=== PATIENT | female | born 1955 | race Caucasian/White ===

== ENCOUNTER → 2017-12-30 11:11 | Outpatient (CLI) | payer MEDICARE, OTHER, SELFPAY ==
--- NOTE | 2017-12-30 | DI.MG.S_ITS ---
BILATERAL DIGITAL SCREENING MAMMOGRAM 3D/2D WITH CAD: 12/30/2017 CLINICAL: Routine screening. Comparison is made to exams dated: 06/21/2016 mammogram, 04/21/2015 mammogram, and 04/08/2014 mammogram - [facility]. The tissue of both breasts is heterogeneously dense. This may lower the sensitivity of mammography. Current study was also evaluated with a Computer Aided Detection (CAD) system. There is a focal asymmetry in the right breast at 6 o'clock anterior depth. No other significant masses, calcifications, or other findings are seen in either breast. IMPRESSION: INCOMPLETE: NEEDS ADDITIONAL IMAGING EVALUATION The focal asymmetry in the right breast is indeterminate. Additional views with possible ultrasound are recommended. This exam was interpreted at Station ID: [id number]. NOTE: For mammograms, a report in lay terms will be sent to the patient. Approximately 15% of breast malignancies will not be visualized mammographically. In the management of a palpable breast mass, a negative mammogram must not discourage biopsy of a clinically suspicious lesion. Electronically Signed By: Maria Fernanda ye/beatriz:12/30/2017 13:20:45 copy to: HEBER ROSSI letter sent: Additional Imaging Needed ACR BI-RADS Category 0: Incomplete 3340F
== END ==
PROVIDERS: PCP Internal Medicine
DX: Z12.31 Encounter for screening mammogram for malignant neoplasm of breast (principal)
CPT/HCPCS: 77063; 77067

== ENCOUNTER → 2018-02-10 08:29 | Outpatient (CLI) | payer MEDICARE, OTHER, SELFPAY ==
--- NOTE | 2018-02-10 | DI.US.S_ITS ---
ULTRASOUND OF RIGHT BREAST: 02/10/2018 CLINICAL: Patient returns today to evaluate a density in the right breast. Comparison is made to exams dated: 02/10/2018 mammogram, 12/30/2017 mammogram - [facility], and 06/21/2016 mammogram - [facility]. Color flow ultrasound of the right breast was performed on the areas of interest. Melgar scale images of the real-time examination were reviewed. There is a cluster of microcysts in the right breast at 7 o'clock anterior depth. This correlates with mammography findings. IMPRESSION: PROBABLY BENIGN - FOLLOW-UP RECOMMENDED The cluster of microcysts in the right breast is probably benign. A follow-up ultrasound in 6 months is recommended to demonstrate stability. This exam was interpreted at Station ID: [id number]. Electronically Signed By: Maria Fernanda La M.D. lk/:02/10/2018 10:01:14 copy to: HEBER ROSSI letter sent: Followup Recommended Ultrasound BI-RADS: 3 Probably benign
--- NOTE | 2018-02-10 | DI.MG.S_ITS ---
UNILATERAL RIGHT DIGITAL DIAGNOSTIC MAMMOGRAM 3D/2D WITH ADDITIONAL VIEWS: 02/10/2018 CLINICAL: Additional evaluation requested from prior study. Comparison is made to exams dated: 12/30/2017 mammogram - [facility], 06/21/2016 mammogram, and 04/21/2015 mammogram - [facility]. The tissue of the right breast is heterogeneously dense. This may lower the sensitivity of mammography. There is an irregular mass in the right breast at 7 o'clock anterior depth. This is seen in additional views. No other significant masses or calcifications are seen in the breast. IMPRESSION: INCOMPLETE: NEEDS ADDITIONAL IMAGING EVALUATION The irregular mass in the right breast likely represents clustered cysts and is indeterminate. An ultrasound is recommended. This exam was interpreted at Station ID: [id number]. NOTE: For mammograms, a report in lay terms will be sent to the patient. Approximately 15% of breast malignancies will not be visualized mammographically. In the management of a palpable breast mass, a negative mammogram must not discourage biopsy of a clinically suspicious lesion. Electronically Signed By: Maria Fernanda [email or web address]/beatriz:02/10/2018 09:02:06 copy to: HEBER ROSSI letter sent: Additional Imaging Needed ACR BI-RADS Category 0: Incomplete 3340F
== END ==
PROVIDERS: PCP Internal Medicine
DX: R92.8 Other abnormal and inconclusive findings on diagnostic imaging of breast (principal); N63.13 Unspecified lump in the right breast, lower outer quadrant
CPT/HCPCS: 76642; 77065; G0279

== ENCOUNTER → 2018-08-11 11:57 | Outpatient (CLI) | payer MEDICARE, OTHER, SELFPAY ==
--- NOTE | 2018-08-11 | DI.US.S_ITS ---
LIMITED ULTRASOUND OF RIGHT BREAST: 08/11/2018 CLINICAL: 6 month follow-up of probable cysts. Comparison is made to exams dated: 02/10/2018 ultrasound, 02/10/2018 mammogram, 12/30/2017 mammogram - [facility], 06/21/2016 mammogram, 04/21/2015 mammogram, and 04/08/2014 mammogram - [facility]. Real-time and Doppler ultrasound of the right breast 7-8 o'clock region were performed. Melgar scale images of the real-time examination were reviewed. There is a 0.8 x 0.6 x 0.6 cm oval indistinct probable cluster of microcysts in the right breast at 7:30 position 6 cm from nipple which demonstrates posterior acoustic enhancement/increased through-transmission and no vascularity on Doppler ultrasound. This probable cluster of microcysts is unchanged in morphology from comparison exam of 02/10/2018, where it measured approximately 0.6 x 0.6 x 0.6 cm (within margins of error for measurement). IMPRESSION: PROBABLY BENIGN Stable 0.8 cm probable cluster of microcysts in the right breast at 7:30 position 6 cm from the nipple when compared with prior exam of 02/10/2018. A followup ultrasound in 6 months is recommended to demonstrate continued stability. Patient will also be due for bilateral mammography at that time. The patient is advised to monitor her breasts and to return sooner for re-evaluation should she feel anything grow or change. This exam was interpreted at Station ID: [id number]. Electronically Signed By: Rudi Carson M.D. ecl/:08/11/2018 13:21:09 letter sent: Followup Recommended Ultrasound BI-RADS: 3 Probably benign
== END ==
PROVIDERS: PCP Internal Medicine; Visit Provider Internal Medicine
DX: R92.8 Other abnormal and inconclusive findings on diagnostic imaging of breast (principal)
CPT/HCPCS: 76642

== ENCOUNTER → 2018-11-20 11:55 | Outpatient (CLI) | payer MEDICARE, OTHER, SELFPAY ==
--- NOTE | 2018-11-20 | DI.US.S_ITS ---
PROCEDURE: US ABDOMEN LIMITED INDICATIONS: VENTRAL HERNIA TECHNIQUE: Real-time focused scanning was performed of the abdomen, with image documentation. COMPARISON: None. FINDINGS: No left lower lateral ventral wall hernia or other left lower quadrant abnormality seen IMPRESSION: No left lower quadrant ventral wall hernia. Dictated by: Deo LUCERO Interpreted: Maxim Arguelles MD on 11/21/2018 at 10:00 Approved by: Maxim Arguelles M.D. on 11/21/2018 at 14:31
== END ==
PROVIDERS: PCP Physician Assistant; Visit Provider Physician Assistant
DX: K43.9 Ventral hernia without obstruction or gangrene (principal)
CPT/HCPCS: 76705

== ENCOUNTER → 2019-01-24 13:30 | Outpatient (CLI) | payer MEDICARE, OTHER, SELFPAY ==
--- NOTE | 2019-01-24 | DI.MG.S_ITS ---
BILATERAL DIGITAL DIAGNOSTIC MAMMOGRAM 3D/2D SHORT-TERM FOLLOW-UP: 01/24/2019 CLINICAL: Patient returns for 6 month follow up of right breast, due for bilateral exam. Comparison is made to exams dated: 02/10/2018 mammogram, 12/30/2017 mammogram - [facility], and 06/21/2016 mammogram - [facility]. The tissue of both breasts is heterogeneously dense. This may lower the sensitivity of mammography. There is a stable mass in the right breast at 7 o'clock anterior depth. No other significant masses, calcifications, or other findings are seen in either breast. IMPRESSION: INCOMPLETE: NEEDS ADDITIONAL IMAGING EVALUATION The stable irregular mass in the right breast is indeterminate. A targeted ultrasound of the right breast is recommended and will be performed immediately following this exam. This exam was interpreted at Station ID: [id number]. NOTE: For mammograms, a report in lay terms will be sent to the patient. Approximately 15% of breast malignancies will not be visualized mammographically. In the management of a palpable breast mass, a negative mammogram must not discourage biopsy of a clinically suspicious lesion. Electronically Signed By: Maria Fernanda ye/:01/24/2019 14:43:08 ACR BI-RADS Category 0: Incomplete 3340F
--- NOTE | 2019-01-24 | DI.US.S_ITS ---
ULTRASOUND OF RIGHT BREAST: 01/24/2019 CLINICAL: Patient returns for a 6 month follow up of the right breast. Comparison is made to exams dated: 01/24/2019 mammogram, 08/11/2018 ultrasound, 02/10/2018 ultrasound, 02/10/2018 mammogram, and 12/30/2017 mammogram - [facility]. Color flow and real-time ultrasound of the right breast were performed on the areas of interest. Melgar scale images of the real-time examination were reviewed. The clustered microcysts in the right breast at 7:30 o'clock, 6 cm from the nipple currently measures 11 x 6 x 6 mm and measured 8 x 6 x 6 mm on the comparison study dated 08/15/18. IMPRESSION: SUSPICIOUS OF MALIGNANCY The cluster of microcysts in the right breast has increased in size when compared with the prior ultrasound examinations, and is at a low suspicion for malignancy. An ultrasound guided biopsy is recommended. This exam was interpreted at Station ID: [id number]. SUMMARY: This was discussed with the patient by the radiologist Dr Carson at the time of the exam. Electronically Signed By: Maria Fernanda ye/:01/24/2019 16:46:08 letter sent: Biopsy Required Ultrasound BI-RADS: 4a Suspicious abnormality - low suspicion for malignancy
== END ==
PROVIDERS: PCP Family Medicine; Visit Provider Family Medicine
DX: N63.10 Unspecified lump in the right breast, unspecified quadrant (principal)
CPT/HCPCS: 76642; 77066; G0279